=== PATIENT | male | born 1985 | race Caucasian/White ===

== ENCOUNTER 2017-10-24 23:48 | Emergency (ER) | payer MEDICAID | END 2017-10-25 00:21 | disposition home or self-care (01) | LOC: D.ER 23:48 | DX: S02.5XXA Fracture of tooth (traumatic), initial encounter for closed fracture (principal); X58.XXXA Exposure to other specified factors, initial encounter; Y93.89 Activity, other specified; Y92.029 Unspecified place in mobile home as the place of occurrence of the external cause; K08.89 Other specified disorders of teeth and supporting structures; K05.10 Chronic gingivitis, plaque induced; F17.200 Nicotine dependence, unspecified, uncomplicated ==

== ENCOUNTER 2017-12-05 08:34 | Emergency (ER) | payer MEDICAID | END 2017-12-05 10:35 | disposition home or self-care (01) | LOC: D.ER 08:34 | DX: J11.1 Influenza due to unidentified influenza virus with other respiratory manifestations (principal); F17.200 Nicotine dependence, unspecified, uncomplicated ==

== ENCOUNTER 2019-10-28 03:56 | Emergency (ER) | payer SELFPAY ==
[~2019-10-28] VITALS: Ht 175.3 cm; Wt 63.6 kg
[2019-10-28 04:04] VITALS: Ht 175.3 cm; Wt 63.6 kg
[2019-10-28] MEDS ORDERED: SKELAXIN800 MG PO (05:18)
[2019-10-28] MEDS ORDERED: NAPROSYN500 MG PO (05:18)
[2019-10-28 05:36] VITALS: BP 103/77
== END 2019-10-28 05:36 | disposition home or self-care (01) ==
LOC: D.ER 03:56
DX: S39.012A Strain of muscle, fascia and tendon of lower back, initial encounter (principal); X50.0XXA Overexertion from strenuous movement or load, initial encounter; Y93.9 Activity, unspecified; Y92.9 Unspecified place or not applicable; Y99.0 Civilian activity done for income or pay

== ENCOUNTER 2019-12-08 20:53 | Emergency (ER) | payer SELFPAY ==
[~2019-12-08] VITALS: Ht 175.3 cm; Wt 63.6 kg
[~2019-12-08 20:53] MED LIST: NAPROSYN500 MG PO; SKELAXIN800 MG PO
[2019-12-08 20:59] VITALS: Ht 175.3 cm; Wt 63.6 kg
[2019-12-08 21:48] LABS: BASOPHILS 0.1 % (0-2); EOSINOPHILS 0.5 % (0-7); HEMATOCRIT 35.2 % (42.0-54.0); HEMOGLOBIN 12.4 g/dL (13.5-17.5); IMMATURE GRANULOCYTES 0.2 % (0-5); LYMPHOCYTES 18.2 % (15-50); MCH 31.1 pg (26.0-34.0); MCHC 35.2 g/dL (31.0-37.0); MCV 88.2 fL (80.0-100.0); MEAN PLATELET VOLUME 10.1 fL (7.4-10.4); MONOCYTES 6.8 % (2-11); NEUTROPHILS 74.2 % (40-80); PLATELET COUNT 323 10x3/uL (130-400); RBC 3.99 10x6/uL (4.20-6.10); RDW 12.5 % (11.5-14.5); WBC 9.1 10x3/uL (4.8-10.8)
[2019-12-08 21:56] LABS: APTT 34.8 SECONDS (22.8-39.4); INR 1.02 (0.85-1.17); PROTIME 13.3 SECONDS (11.6-15.0)
[2019-12-08 22:03] LABS: CALC OSMOLALITY 273 mosm/kg (275-300); CALCIUM 8.6 mg/dL (8.5-10.1); CARBON DIOXIDE 24.8 mmol/L (21.0-32.0); CHLORIDE - SERUM 102 mmol/L (98-107); CREATININE - SERUM 0.9 mg/dL (0.6-1.3); GLUCOSE 104 mg/dL (74-106); POTASSIUM - SERUM 3.6 mmol/L (3.5-5.1); SODIUM 138 mmol/L (136-145); UREA NITROGEN 8 mg/dL (7-18); eGFR NON AFRICAN AMERICAN > 90 mL/min (90-120)
[2019-12-08] MEDS ORDERED: LEVOFLOXACIN500 MG PO (22:05)
[2019-12-08 22:29] LABS: ALKALINE PHOSPHATASE 98 U/L (46-116); ALT (SGPT) 25 U/L (10-68); BILIRUBIN - TOTAL 0.29 mg/dL (0.2-1.3); CKMB 0.1 U/L (0.0-3.6); CREATINE KINASE 61 UL (21-232); PRO BNP 71 pg/mL (0-125); PROTEIN - SERUM 7.3 g/dL (6.4-8.2)
[2019-12-08 22:30] LABS: TROPONIN-I < 0.017 ng/mL (0.000-0.060)
[2019-12-08 22:40] VITALS: BP 112/57
== END 2019-12-08 22:40 | disposition home or self-care (01) ==
LOC: D.ER 20:53
PROVIDERS: Family Medicine
DX: J18.9 Pneumonia, unspecified organism (principal)